=== PATIENT | female | born 1995 | race Caucasian/White ===

== ENCOUNTER 2016-10-10 19:05 | Emergency (ER) | payer SELFPAY ==
--- NOTE | 2016-10-10 19:20 | ED Physician Documentation ---
General Adult - HISTORIAN Historian: patient - HPI Chief Complaint: Nausea,Vomiting,Diarrhea Timing: still present Severity: moderate Further Comments: yes (Patient has been having some nausea, vomiting with dry heavying, diarrhea, no blood noted. Has not been able to keep anything downd-.) - ROS CONST: fever, chills (102. 9) - PAST HX Past History: none Other History: none Surgeries/Procedures: none, other (appendicitis, ear surgery) Immunizations: referred to PCP Allergies/Adverse Reactions: Allergies Allergy/AdvReac Type Severity Reaction Status Date / Time codeine Allergy Anaphylaxis Verified 10/10/16 20:15 Penicillins Allergy Anaphylaxis Verified 10/10/16 20:15 morphine AdvReac Intermediate Vomiting Verified 10/10/16 20:15 Home Medications: Ambulatory Orders Medication Instructions Recorded Ondansetron HCl Rapdis [Zofran Odt] 4 mg PO Q8 PRN #5 tab 10/10/16 - SOCIAL HX Smoking History: less than 1 pack/day Alcohol Use: none Drug Use: none - FAMILY HX Family History: No - REVIEWED ASSESSMENTS Nursing Assessment Reviewed: Yes Vitals Reviewed: Yes General Adult Physical Exam - PHYSICAL EXAM GENERAL APPEARANCE: mild distress EENT: ENT inspection normal, pharynx normal, no signs of dehydration NECK: normal inspection, supple. No: lymphadenopathy, stiff neck RESPIRATORY: no resp distress, chest non-tender, breath sounds normal. No: wheezes, rales, rhonchi CVS: reg rate & rhythm, heart sounds normal, equal pulses, no murmur, no gallop ABDOMEN: soft, no organomegaly, normal bowel sounds, no abdominal bruit, no distension, non-tender. No: rebound, guarding SKIN: warm/dry, normal color EXTREMITIES: non-tender NEURO: oriented X3, mood/affect nml, cognition normal Discharge Clincal Impression: Viral gastroenteritis, Hypokalemia Prescriptions: Ondansetron HCl Rapdis [Zofran Odt] 4 mg PO Q8 PRN #5 tab PRN Reason: Nausea / Vomiting Referrals: Primary Doctor,No [Primary Care Provider] - 2 Days Additional Instructions: Take Zofran as needed for nausea. Try to drink a lot of fluids. Take Tylenol or ibuprofen as needed for pain or fever, do not take aspirin. Wash your hands frequently. Have your mildly low potassium rechecked. Eat foods that are high in potassium. Home Medications: Ambulatory Orders Ondansetron HCl Rapdis [Zofran Odt] 4 mg PO Q8 PRN #5 tab 10/10/16 Condition: Stable Disposition: 01 HOME, SELF-CARE Decision to Admit: NO Date of Decison to Admit: 10/10/16 Decision Time: 20:31
[2016-10-10] MEDS ORDERED: 0.9 % SODIUM CHLORIDE 1,000 ML IV SCH (19:30)
[2016-10-10] MEDS ORDERED: 0.9 % SODIUM CHLORIDE 1,000 ML IV ONE (20:06)
[2016-10-10 20:31] LABS: BASOPHILS % 0.7 (0.0-1.5); EOSINOPHILS % 0.4 % (0.0-6.8); MEAN CORPUSCULAR HEMOGLOBIN 31.2 pg (28.0-34.0); NEUTROPHILS # 8.2 # k/uL (1.4-7.7)
[2016-10-10 20:46] LABS: eGFR (African) > 60; eGFR (Non-African) > 60
[2016-10-10] MEDS ORDERED: ONDANSETRON HCL 4 MG TAB.RAPDIS PO PRN (20:53)
[2016-10-10] MEDS ORDERED: ONDANSETRON HCL 4 MG TAB.RAPDIS ONE (20:56)
[2016-10-10 21:38] VITALS: BP 112/86
[2016-10-11 06:08] LABS: APPEARANCE,URINE CLEAR (CLEAR); COLOR,URINE YELLOW (YELLOW)
[2016-10-11 06:09] LABS: OCCULT BLOOD,URINE 2+ (NEGATIVE); URINE HCG NEGATIVE (NEGATIVE); UROBILINOGEN URINE 0.2 Eu (0.2-1.0)
== END 2016-10-10 21:30 | disposition home or self-care (01) ==
LOC: ED 19:05
DX: A08.4 Viral intestinal infection, unspecified (principal); E87.6 Hypokalemia
CPT/HCPCS: 80053; 85025; A9270; J7030; 81002; 81025; 87070; 87400; 87880; 96360; 96361; 99283; S1016